=== PATIENT | female | born 1995 | race Caucasian/White ===

== ENCOUNTER 2022-04-22 10:50 | Emergency (ER) | payer OTHER ==
[2022-04-22] MEDS ORDERED: dexAMETHasone 10 MG/ML VIAL ONE (12:48)
[2022-04-22] MEDS ORDERED: IBUPROFEN 200 MG TAB PO ONE (12:49)
[2022-04-22 13:34] LABS: SARS-COV-2 RT PCR NEGATIVE (NEGATIVE)
--- NOTE | 2022-04-22 13:39 | EDPHYS ---
Physician Documentation [facility] Name: Siobhan Kerr Age: 26 yrs Sex: Female : 1995 Arrival Date: 04/22/2022 Time: 10:54 Bed Treatment Private MD: ED Physician Osbaldo Ly HPI: 04/22 11:53 This 26 yrs old Female presents to ER via Ambulatory with complaints of Flu Symptoms. jmm 11:53 Onset: The symptoms/episode began/occurred gradually. jmm 11:53 Modifying factors: The symptoms are alleviated by nothing. the symptoms are aggravated jmm by nothing. Associated signs and symptoms: Pertinent positives: earache, fever, sore throat. It is unknown whether or not the patient has had similar symptoms in the past. This is a 26 year old female with no chronic medical conditions that presents to the ED with complaints of sore throat, ear aches, sinus pressure, body aches beginning approx 4 days ago. . PHARMACY SPECIALIST: 11:15 LMP 04/22/2022 ss Historical: - Allergies: 11:15 Amoxicillin; ss - Home Meds: 11:15 None [Active]; ss - PMHx: 11:15 None; ss - PSHx: 11:15 tubal ligation; ss - Immunization history:: Client reports receiving the 2nd dose of the Covid vaccine. - Social history:: Smoking status: Patient denies any tobacco usage or history of. ROS: 11:53 Constitutional: Positive for body aches, chills, fever. jmm 11:53 ENT: Positive for sore throat. 11:53 Respiratory: Positive for cough. 11:53 All other systems are negative. Exam: 11:53 Constitutional: This is a well developed, well nourished patient who is awake, alert, jmm and in no acute distress. Head/Face: atraumatic. Eyes: EOMI, no conjunctival erythema appreciated 11:53 Neck: Trachea midline, Supple Chest/axilla: Normal chest wall appearance and motion. Cardiovascular: Regular rate and rhythm. No edema appreciated Respiratory: Normal respirations, no respiratory distress appreciated Abdomen/GI: Non distended Back: Normal ROM Skin: General appearance color normal 11:53 ENT: Posterior pharynx: Tonsils: enlarged on the right, enlarged on the left, with erythema, with exudate, erythema, that is moderate. 11:53 Musculoskeletal/extremity: ROM: intact in all extremities. 11:53 Skin: Appearance: Color: normal in color. 11:53 Neuro: Orientation: is normal, Mentation: is normal, Memory: is normal. 11:53 Psych: Behavior/mood is pleasant, cooperative. Vital Signs: 11:13 BP 118 / 73; Pulse 99; Resp 15; Temp 99.0(O); Pulse Ox 100% on R/A; Weight 115.67 kg; ss Height 5 ft. 3 in. (160.02 cm); Pain 5/10; 11:13 Body Mass Index 45.17 (115.67 kg, 160.02 cm) ss MDM: 11:28 Patient medically screened. [facility] 13:36 Data reviewed: vital signs, nurses notes. Counseling: I had a detailed discussion with matthew the patient and/or guardian regarding: the historical points, exam findings, and any diagnostic results supporting the discharge/admit diagnosis, lab results, the need for outpatient follow up, to return to the emergency department if symptoms worsen or persist or if there are any questions or concerns that arise at home. 04/22 11:28 Order name: COVID-19/FLU A+B; Complete Time: 13:36 [facility] 04/22 11:28 Order name: Strep; Complete Time: 12:40 [facility] Administered Medications: 12:52 Drug: Decadron (dexamethasone) 10 mg Route: IM; Site: left deltoid; ss 14:21 Follow up: Response: No adverse reaction 12:52 Drug: Ibuprofen 400 mg Route: PO; ss 14:21 Follow up: Response: No adverse reaction Disposition Summary: 04/22/22 13:38 Discharge Ordered Location: Home [facility] Condition: Stable [facility] Diagnosis - Streptococcal pharyngitis [facility] Followup: [facility] - With: Private Physician - When: 2 - 3 days - Reason: Recheck today's complaints, Continuance of care, Re-evaluation by your physician Discharge Instructions: - Discharge Summary Sheet [facility] - Strep Throat, Adult [facility] Forms: - Medication Reconciliation Form [facility] - Thank You Letter [facility] - Antibiotic Education [facility] - Prescription Opioid Use [facility] Prescriptions: - Zithromax Z-Chung 250 mg Oral Tablet - take 1 tablet by ORAL route as directed for 5 days Day 1 - take two (2) tablets [facility] one time. Day 2, 3, 4 , 5 take one (1) tablet once daily.; 6 tablet; Refills: 0, Product Selection Permitted Signatures: Dispatcher [employer] Osbaldo Fan MD MD cha Mickail, Joel, PA PA jmm Smirch, Shelby, RN RN ss Corrections: (The following items were deleted from the chart) 11:15 11:15 PSHx: None; ss ss
--- NOTE | 2022-04-22 13:39 | ER ---
Nurse's Notes [facility] Name: Siobhan Kerr Age: 26 yrs Sex: Female : 1995 Arrival Date: 04/22/2022 Time: 10:54 Bed Treatment Private MD: Diagnosis: Streptococcal pharyngitis Presentation: 04/22 11:13 Chief complaint: Patient states: body aches, throat pain, bilateral ear pain and nasal ss congestion that began 4 days ago. Coronavirus screen: Client denies travel out of the [place] in the last 14 days. Ebola Screen: Patient denies exposure to infectious person. Patient denies travel to an Ebola-affected area in the 21 days before illness onset. Initial Sepsis Screen: Does the patient meet any 2 criteria? No. Patient's initial sepsis screen is negative. Does the patient have a suspected source of infection? No. Patient's initial sepsis screen is negative. Risk Assessment: Do you want to hurt yourself or someone else? Patient reports no desire to harm self or others. Onset of symptoms was April 18, 2022. 11:13 Method Of Arrival: Ambulatory ss 11:13 Acuity: ANGLE 4 ss TOP CAGER: 11:15 LMP 04/22/2022 ss Historical: - Allergies: 11:15 Amoxicillin; ss - Home Meds: 11:15 None [Active]; ss - PMHx: 11:15 None; ss - PSHx: 11:15 tubal ligation; ss - Immunization history:: Client reports receiving the 2nd dose of the Covid vaccine. - Social history:: Smoking status: Patient denies any tobacco usage or history of. Screenin:15 Abuse screen: Denies threats or abuse. Denies injuries from another. Nutritional ss screening: No deficits noted. Tuberculosis screening: Never had TB. Fall Risk None identified. Assessment: 11:15 General: Appears in no apparent distress. comfortable, Behavior is calm, cooperative. ss General: Reports feeling ill for 2-3 days. Pain: Complains of pain in generalized body aches, bilateral ear pain. Neuro: Level of Consciousness is awake, alert. Respiratory: Airway is patent Respiratory effort is even, unlabored, Respiratory pattern is regular, symmetrical. Derm: Skin is intact, is healthy with good turgor, Skin is dry, Skin is pink, warm \T\ dry. normal. Vital Signs: 11:13 BP 118 / 73; Pulse 99; Resp 15; Temp 99.0(O); Pulse Ox 100% on R/A; Weight 115.67 kg; ss Height 5 ft. 3 in. (160.02 cm); Pain 5/10; 11:13 Body Mass Index 45.17 (115.67 kg, 160.02 cm) ED Course: 10:54 Patient arrived in ED. rg4 10:55 Gui Zhu PA is PHCP. [facility] 10:55 Osbaldo Ly MD is Attending Physician. [facility] 11:15 Triage completed. ss 11:15 Arm band placed on right wrist. 11:15 Patient has correct armband on for positive identification. 12:33 Lena Persaud, MARIS is Primary Nurse. 14:21 No provider procedures requiring assistance completed. Patient did not have IV access ss during this emergency room visit. Administered Medications: 12:52 Drug: Decadron (dexamethasone) 10 mg Route: IM; Site: left deltoid; 14:21 Follow up: Response: No adverse reaction 12:52 Drug: Ibuprofen 400 mg Route: PO; ss 14:21 Follow up: Response: No adverse reaction ss Medication: 11:15 VIS not applicable for this client. Outcome: 13:38 Discharge ordered by . [facility] 14:21 Patient left the ED. 14:21 Discharged to home ambulatory. 14:21 Condition: good 14:21 Discharge instructions given to patient, family, Instructed on discharge instructions, follow up and referral plans. medication usage, Demonstrated understanding of instructions, follow-up care, medications, Prescriptions given X 1. Signatures: Gui Zhu PA PA jmm Smirch, Shelby, MARIS RN Debbie Bland rg4 Corrections: (The following items were deleted from the chart) 11:15 11:15 PSHx: None; [facility] 19:47 19:46 Discharged to [facility]
[2022-04-22 14:29] VITALS: BP 118/73; TEMP 99; O2SAT 100
== END 2022-04-22 14:21 | disposition home or self-care (01) ==
LOC: ER 10:50
DX: J02.0 Streptococcal pharyngitis (principal); Z20.822 Contact with and (suspected) exposure to COVID-19
CPT/HCPCS: 87081; 0240U; 96372; 99283; J1100